=== PATIENT | female | born 1970 | race Caucasian/White ===

== ENCOUNTER 2023-11-26 22:53 | Emergency (ER) | payer OTHER, SELFPAY ==
[2023-11-26 22:55] VITALS: BP 125/72
--- NOTE | 2023-11-26 23:53 | ED.GENMED ---
Addendum entered and electronically signed by Brandon Hahn DO 12/06/23 15:39:
Final Diagnosis: Lumbar radiculopathy
Original Note:
History of Present Illness
General
Chief Complaint: Extremity Pain (non-traumatic)
Source: patient and spouse
Time Seen by Provider: 11/26/23 23:15
Travel History
Have you had any contact with someone who has COVID-19?: No
Do you have any symptoms of coronavirus? Fever > 100 degrees, chills, cough, shortness of breath, sore throat, loss of taste or smell, muscle aches, or headache?: No
History of Present Illness
History of Present Illness:
53-year-old female presents with pain in the right lateral leg that radiates down her toes posteriorly. Pain has been going on for 3 to 4 weeks. The pain hurts somewhat const does feel worse. There is not really any position that seems to make it
worse. She has not wanted to walk due to the pain. She denies numbness or tingling. She does have a history of lumbar microdiscectomy and it does feel somewhat similar. Her symptoms in the past were also on her right. No fevers. No injury
Past History
Past History
ED Past Medical History: Hypothyroidism and Other (Endometriosis)
ED Past Surgical History: and Orthopedic (Low back surgery)
Social History
Personal:
Phy Exam
Physical Exam
Physical Exam:
CONSTITUTIONAL Vital signs reviewed, Patient alert and oriented to person, place and time. Well-appearing
HEAD atraumatic, normocephalic.
EYES eyelids normal to inspection, Extraocular muscles intact, Conjunctiva normal, Sclera normal.
NECK normal range of motion, Trachea midline, no jugular venous distention.
RESP no respiratory distress
BACK No obvious deformities
UPPER EXTREMITY Gross Range of motion normal, gross motor strength normal
LOWER EXTREMITY Gross range of motion normal, Gross motor strength normal. No palpable cords. No edema. Normal dorsalis pedis and posterior tibia pulses
NEURO Speech normal, No focal motor deficits include, [place] coma scale 15, Memory normal, Cranial Nerves intact to screening exam. positive straight leg raise
SKIN Skin warm, dry, and normal in color.
PSYCHIATRIC Patient oriented to person place and time, Normal affect.
Course
Orders/Labs/Results
Orders:
Orders
11/26/23 23:51
Ketorolac [Toradol] 60 mg IM NOW STA
Prednisone [Deltasone] 50 mg PO NOW STA
Vital Signs
Initial and Last Documented VS:
Initial Vital Signs
Temp Pulse Resp BP Pulse Ox
97.6 F 92 14 125/72 97
11/26/23 22:55 11/26/23 22:55 11/26/23 22:55 11/26/23 22:55 11/26/23 22:55
Last Documented Vital Signs
Temp Pulse Resp BP Pulse Ox
97.6 F 92 14 125/72 97
11/26/23 22:55 11/26/23 22:55 11/26/23 22:55 11/26/23 22:55 11/26/23 22:55
MDM/Problems Addressed
MDM/Problems Addressed:
Lumbar radiculopathy
*Pulse Oximetry
Patient hypoxic: no
*Critical Care Note
Total Time (30-74mins, 75-104mins- exclusive of procedures): Not Applicable
Data Reviewed
Further Testing Considered But Not Given:
Consider imaging but no trauma
Patient Management
Escalation/DeEscalation of care consider admission/obs:
No evidence of DVT. No evidence of arterial compromise. Suspect lumbar radiculopathy. Patient's PCP appointment on Tuesday and will follow-up with her back surgeon. Trial steroids. Recommended PT, outpatient MRI and possible pain management for
injection
ED Attending Note
-
Portions of this chart may have been created with voice recognition software.� Occasional wrong word or��sound alike� substitutions may have occurred due to the inherent limitations of voice recognition software.
Discharge Plan
Departure
Date of Disposition: 11/26/23
Time of Disposition: 23:58
Patient with high blood pressure during this ER visit?: No
Instructions: Radiculopathy
Prescriptions:
New
prednisone 10 mg Tablet
See Rx Instructions .ROUTE .COMPLEX Qty: 45 0RF
Rx Instructions:
Take By Mouth:
50 mg daily x3 days, 40 mg daily x3 days,
30 mg daily x3 days, 20 mg daily x3 days,
10 mg daily x3 days
No Action
levothyroxine 50 MCG tablet
50 mcg PO DAILY AT 0700
duloxetine 30 MG capsule,delayed release(DR/EC)
30 mg PO DAILY
Bupropion Hcl [Bupropion Xl] 150 MG Tab.Er.24h
150 mg PO DAILY
methvaibhav-mRufinablue-s.fwvi-urjlh-dto [Uribel] 1 EACH capsule
1 cap PO QIDPRN PRN (Reason: urinary tract irritation) Qty: 40 1RF
Activity Restrictions/Additional Instructions:
Please see your doctor on Tuesday as planned. Other considerations for further management may include PT, MRI and pain management evaluation as discussed. Return today for motor weakness, worsening symptoms, fever, discoloration of the foot,
swelling of the leg or any other concerns.
Interventions
Interventions:
*Risk Screen - Suicide Last Done: 11/26/23 22:55
*General Assessment Last Done: 11/26/23 22:55
*Neglect/Abuse Screening Last Done: 11/26/23 22:55
Discharge Date and Time
Print Language: BURKINAN
[2023-11-27] MEDS: DELTASONE 50 MG PO (00:03)
[2023-11-27] MEDS: TORADOL 60 MG IM (00:03)
== END 2023-11-27 00:44 | disposition home or self-care (01) ==
LOC: EMR 22:53
PROVIDERS: EMERGENCY PHYSICIAN Emergency Medicine; FAMILY PHYSICIAN Internal Medicine
DX: M54.16 Radiculopathy, lumbar region (principal)
CPT/HCPCS: 99284; 96372

== ENCOUNTER 2024-02-19 23:08 | Emergency (ER) | payer OTHER, SELFPAY ==
[2024-02-19 23:09] VITALS: BP 132/85
--- NOTE | 2024-02-19 23:43 | ED.GENMED ---
History of Present Illness
General
Chief Complaint: Flank Pain
Source: patient
Exam Limitations: none
Time Seen by Provider: 02/19/24 23:31
History of Present Illness
History of Present Illness:
This is a 53 year old female that comes in with c/o right back/flank pain. States that she has severe right lower back pain. State that this has been constant since yesterday. States that she has been taking Ibuprofen with no relief. Denies any
nausea, vomiting, diarrhea. Denies any fever, chills, chest pain, SOB, headache, dizziness, urinary burning or frequency.
Past History
Past History
ED Past Medical History: Hypothyroidism, Psychiatric (Anxiety, ) and Other (Endometriosis, Back pain, Renal calculus, )
ED Past Surgical History: and Orthopedic (Low back surgery, Right rotator cuff)
Social History
Tobacco: Non-smoker
Alcohol: None
Personal: Single
Living: with family
Review of Systems
Review of Systems
All Other Systems: ROS reviewed and negative except as documented in HPI and ROS
Constitutional: Reports no symptoms; Denies fever or chills
EENT: Reports no symptoms
Respiratory: Reports no symptoms; Denies cough or trouble breathing
Cardiac: Reports no symptoms; Denies chest pain
ABD/GI: Denies nausea, vomiting or diarrhea
: Reports flank pain (Right sided); Denies dysuria, frequency or urgency
Musculoskeletal: Reports back pain (Right sided)
Skin: Reports no symptoms
Neurological: Reports no symptoms; Denies dizzy or headache
Psychiatric: Reports no symptoms
Phy Exam
General Physical Exam
General Presentation: mild distress
General age: appears stated age
General Skin: warm and dry
General Habitus: normal
General Mental: alert
General Hydration: dry mucous membranes
ENT Exam
ENT Exam: TM's normal, pharynx normal and neck supple
Eye Exam
Eye Exam: EOMI
Cardiovascular Exam
Cardiovascular Exam: regular rate/rhythm, no edema, no murmur and normal peripheral pulses
Pulmonary Exam
Pulmonary Exam: lungs clear, no respiratory distress, no rales, chest non tender, no crackles, no rhonchi, no wheezing and no cough
Gastrointestinal Exam
Gastrointestinal Exam: normal bowel sounds, soft, no organomegaly, no pulsatile mass, non distended, cva tenderness (Slight right sided) and tender (Right sided abd tenderness with palpation)
Musculoskeletal Exam
Musculoskeletal Exam: full ROM and no edema
Skin Exam
Skin Exam: normal color, warm/dry, no rash and no petechia
Psychiatric Exam
Psychiatric Exam: normal mood/affect
Course
Orders/Labs/Results
Orders:
Orders
02/19/24 23:12
Urinalysis Reflex To Culture Urgent
Date Specimen was Collected: 02/19/24
Time Specimen was Collected: 23:12
02/19/24 23:32
Complete Blood Count/With Diff Urgent
02/19/24 23:33
Comprehensive Metabolic Panel Urgent
02/19/24 23:41
0.9% Sodium Chloride 1000 ml [Nss] 1,000 ml IV BOLUS
Ketorolac [Toradol] 30 mg IV NOW STA
02/19/24 23:43
HYDROmorphone [Dilaudid] 0.5 mg IV NOW STA
02/20/24 00:01
CT Abd/pel Without Iv Or Oral Urgent
Reason For Exam: Right flank pain
02/20/24 00:02
Urine Microscopic Reflex Cult Urgent
Urine Culture Urgent
MANOJ Source: U
Specimen Description:
Date Specimen was Collected: 02/19/24
Time Specimen was Collected: 23:12
02/20/24 01:23
CefTRIAXone [Rocephin] 1,000 mg IV NOW STA
HYDROmorphone [Dilaudid] 1 mg IV NOW STA
Abnormal Lab Results
02/20/24
00:02
RBC 4.02 L 10^6/uL
(4.20-5.40)
Hct 36.3 L %
(37.0-47.0)
Abs Immat Gran (auto) 0.1 H 10^3/uL
(0-0.05)
Absolute Monos (auto) 1.1 H 10^3/uL
(0.1-0.6)
Immature Gran % 1.3 H %
(0-0.5)
Monocytes % 12.5 H %
(1.7-9.3)
Glucose 113 H mg/dl
(70-99)
Urine Nitrite (Reflex) Positive A
(Negative)
Leukocyte Esterase Rfl 1+ A
(Negative)
Urine WBC (Reflex) >100 A /HPF
(0-5)
Urine Bacteria (Reflex) Many A
(Negative)
02/20/24 00:02
02/20/24 00:02
Vital Signs
Initial and Last Documented VS:
Initial Vital Signs
Temp Pulse Resp BP Pulse Ox
99.1 F 106 20 132/85 98
02/19/24 23:09 02/19/24 23:09 02/19/24 23:09 02/19/24 23:09 02/19/24 23:09
Last Documented Vital Signs
Temp Pulse Resp BP Pulse Ox
97.9 F 96 16 111/67 97
02/20/24 00:00 02/20/24 00:00 02/20/24 00:00 02/20/24 00:00 02/20/24 00:00
MDM/Problems Addressed
Differential Diagnosis Includes:
Renal calculus, Back pain
MDM/Problems Addressed:
This is a 53 year old female that comes in with c/o right low back pain. Patient has a history of back pain and renal calculus. States that the pain started yesterday and has been constant.
Will get labs and CT scan. IV fluids and pain medication.
Back into see patient. Explained that her CT shows that she has a stone in the kidney on the left but no renal calculus on the right. Patient does have a UTI and since she is c/o back pain this is most likely a Pyelonephritis. Will give patient IV
antibiotic and discharge patient home on Oral medication. Patient to increase her water intake to 8-8oz glasses daily. Follow up with the family doctor. Return with any concerns
Chronic conditions affecting care:
Back pain
Acute Exacerbation and/or Progression of Chronic Illness:
renal calculus, Back pain
*Radiology
Radiology exam reviewed: radiology read reviewed (CT- No acute intra-abdominal pathology. NO hydronephrosis. Approximately 4mm calculus in the posterior upper pole calyx on the left. No bowel obstruction or inflammation. Appendix is normal. No frree
air or free fluid. )
*Pulse Oximetry
Patient hypoxic: no
*EKG
Interpreted by ED Provider?: NA
Rate: EKG- N/A
*Cosmetic Surgeon Interpretation
Rate: Cosmetic Surgeon- N/A
*Critical Care Note
Total Time (30-74mins, 75-104mins- exclusive of procedures): Not Applicable
ED Attending Note
-
Portions of this chart may have been created with voice recognition software.� Occasional wrong word or��sound alike� substitutions may have occurred due to the inherent limitations of voice recognition software.
Discharge Plan
Departure
Patient Disposition: Home (Routine Discharge)
Date of Disposition: 02/20/24
Time of Disposition: 01:26
Patient with high blood pressure during this ER visit?: No
Condition: Good
Covid-19: Not Applicable
Discharge Problem:
Pyelonephritis of right kidney
Instructions: Urinary Tract Infection, Adult ED
Prescriptions:
New
cefdinir 300 mg capsule
300 mg PO BID Qty: 14 0RF
No Action
levothyroxine 50 MCG tablet
50 mcg PO DAILY AT 0700
duloxetine 30 MG capsule,delayed release(DR/EC)
30 mg PO DAILY
Bupropion Hcl [Bupropion Xl] 150 MG Tab.Er.24h
150 mg PO DAILY
hetal-s.wsbb-zcgxk-tna [Uribel] 1 EACH capsule
1 cap PO QIDPRN PRN (Reason: urinary tract irritation) Qty: 40 1RF
prednisone 10 mg Tablet
See Rx Instructions .ROUTE .COMPLEX Qty: 45 0RF
Rx Instructions:
Take By Mouth:
50 mg daily x3 days, 40 mg daily x3 days,
30 mg daily x3 days, 20 mg daily x3 days,
10 mg daily x3 days
Referrals:
Bonnie Esteban MD [Family Provider] - Call in 1-3 days for appt
Activity Restrictions/Additional Instructions:
As discussed, your blood work is normal. However you have a urinary tract infection. This is most likely a kidney infection due to the fact that you have right sided back pain. Your CT shows that you have a stone in the left kidney but this normally
dose not cause pain unless it moves. Please increase your water intake to 8-8oz glasses daily. Follow up with the family doctor after you are off the antibiotic for a repeat urine test. IF YOU HAVE INCREASED FEVER, VOMITING, PAIN OR YOU HAVE ANY
OTHER CONCERNS PLEASE RETURN TO THE EMERGENCY ROOM.
Interventions
Interventions:
*Risk Screen - Suicide Last Done: 02/19/24 23:09
*Neglect/Abuse Screening Last Done: 02/19/24 23:09
Discharge Date and Time
Print Language: PERSIAN
[2024-02-20] VITALS: BP 111/67
[2024-02-20] MEDS: NSS 1000 IV (00:03)
[2024-02-20] MEDS: TORADOL 30 MG IV (00:03)
[2024-02-20] MEDS: DILAUDID 0.5 MG IV (00:04)
[2024-02-20 00:29] LABS: % Basophils 0.4 % (0-2); % Eosinophils 1.8 % (0-6); % Immature Granulocytes 1.3 % (0-0.5); % Lymphocytes 28.5 % (20.5-51.1); % Monocytes 12.5 % (1.7-9.3); % Neutrophils 55.5 % (42.2-75.2); Absolute Eosinophils 0.2 10^3/uL (0-0.7); Absolute Immature Granulocytes 0.1 10^3/uL (0-0.05); Absolute Lymphocytes 2.4 10^3/uL (1.2-3.4); Absolute Monocytes 1.1 10^3/uL (0.1-0.6); Absolute Neutrophils 4.7 10^3/uL (1.4-6.5); Hematocrit 36.3 % (37.0-47.0); Hemoglobin 12.4 g/dL (12.0-16.0); Mean Corp Hgb Conc. 34.2 g/dL (33.0-37.0); Mean Corpuscular Hgb 30.8 pg (27.0-31.0); Mean Corpuscular Volume 90.3 fL (81.0-99.0); Mean Platelet Volume 9.4 fL (7.4-10.4); Nucleated Red Blood Cells % 0 %; Platelet Count 291 10^3/uL (130-400); Red Blood Cell Count 4.02 10^6/uL (4.20-5.40); Red Cell Dist. Width 12.5 % (11.5-14.5); White Blood Cell Count 8.5 10^3/uL (4.8-10.8)
[2024-02-20 00:39] LABS: ALT (SGPT) 18 U/L (0-35); AST (SGOT) 22 U/L (14-36); Alkaline Phosphatase 117 U/L (38-126); Blood Urea Nitrogen 12 mg/dl (7-17); Calcium 9.8 mg/dl (8.4-10.2); Carbon Dioxide 28 mmol/L (22-30); Chloride 103 mmol/L (98-107); Glucose 113 mg/dl (70-99); Potassium 3.9 mmol/L (3.5-5.1); Sodium 137 mmol/L (135-145); Total Bilirubin 0.5 mg/dl (0.2-1.3); Total Protein 6.3 g/dl (6.3-8.2); eGFR > 60.00
[2024-02-20 00:40] LABS: Urine Albumin Negative (Neg - Trace); Urine Bilirubin Negative (Negative); Urine Character Slightly Cloudy (Clear); Urine Color Yellow; Urine Glucose Negative (Negative); Urine Ketone Negative (Negative); Urine Leukocyte 1+ (Negative); Urine Nitrite Positive (Negative); Urine Occult Blood Negative (Negative); Urine Urobilinogen Negative (Neg - 1+)
[2024-02-20 01:07] LABS: Urine Squamous Cell >30 /LPF (Few)
[2024-02-20 01:08] LABS: Urine Bacteria Many (Negative); Urine Mucus Many; Urine White Cell >100 /HPF (0-5)
[2024-02-20 01:13] LABS: Urine Red Blood Cell 0-2 /HPF (0-2)
[2024-02-20] MEDS: DILAUDID 1 MG IV (01:39)
[2024-02-20] MEDS: ROCEPHIN 1000 MG IV (01:39)
[2024-02-20 01:45] VITALS: BP 119/66
== END 2024-02-20 02:10 | disposition home or self-care (01) ==
LOC: EMR 23:08
PROVIDERS: Clinical Nurse Specialist Family Health; Emergency Medicine; EMERGENCY PHYSICIAN Emergency Medicine; FAMILY PHYSICIAN Internal Medicine
DX: N12 Tubulo-interstitial nephritis, not specified as acute or chronic (principal)
CPT/HCPCS: 99284; 96374; 96375 ×2; 96361; 96376; 74176; 80053; 81003; 81015; 85025; 87077; 87086; 87186

== ENCOUNTER 2024-03-31 16:57 | Emergency (ER) | payer OTHER, SELFPAY ==
[2024-03-31 17:03] VITALS: BP 177/107
[2024-03-31 17:08] VITALS: BMI 28.3
[2024-03-31] MEDS: NSS 1000 IV (17:23)
[2024-03-31] MEDS: ZOFRAN 4 MG IV (17:24)
[2024-03-31] MEDS: TORADOL 15 MG IV (17:24)
[2024-03-31 17:25] LABS: % Basophils 0.4 % (0-2); % Eosinophils 2.1 % (0-6); % Immature Granulocytes 0.2 % (0-0.5); % Lymphocytes 38.5 % (20.5-51.1); % Monocytes 11.2 % (1.7-9.3); % Neutrophils 47.6 % (42.2-75.2); Absolute Eosinophils 0.2 10^3/uL (0-0.7); Absolute Lymphocytes 3.7 10^3/uL (1.2-3.4); Absolute Monocytes 1.1 10^3/uL (0.1-0.6); Absolute Neutrophils 4.6 10^3/uL (1.4-6.5); Hematocrit 39.5 % (37.0-47.0); Hemoglobin 13.8 g/dL (12.0-16.0); Mean Corp Hgb Conc. 34.9 g/dL (33.0-37.0); Mean Corpuscular Hgb 30.1 pg (27.0-31.0); Mean Corpuscular Volume 86.2 fL (81.0-99.0); Mean Platelet Volume 9.1 fL (7.4-10.4); Nucleated Red Blood Cells % 0 %; Platelet Count 359 10^3/uL (130-400); Red Blood Cell Count 4.58 10^6/uL (4.20-5.40); Red Cell Dist. Width 12.9 % (11.5-14.5); White Blood Cell Count 9.6 10^3/uL (4.8-10.8)
[2024-03-31 17:51] LABS: ALT (SGPT) 26 U/L (0-35); AST (SGOT) 33 U/L (14-36); Albumin 4.7 g/dl (3.5-5.0); Alkaline Phosphatase 131 U/L (38-126); Blood Urea Nitrogen 20 mg/dl (7-17); Calcium 10.8 mg/dl (8.4-10.2); Carbon Dioxide 23 mmol/L (22-30); Chloride 104 mmol/L (98-107); Estimated Creatinine Clearance 73 ml/min; Glucose 103 mg/dl (70-99); Lipase 190 U/L (23-300); Potassium 3.7 mmol/L (3.5-5.1); Sodium 141 mmol/L (135-145); Total Bilirubin 0.5 mg/dl (0.2-1.3); Total Protein 7.1 g/dl (6.3-8.2); eGFR > 60.00
--- NOTE | 2024-03-31 17:51 | ED.GENMED ---
Addendum entered and electronically signed by Ivanna Cottrell NP 04/01/24 14:08:
[facility] out [facility] Vicodin rx sent for Percocet
Original Note:
History of Present Illness
General
Chief Complaint: Abdominal Pain
Source: patient
Exam Limitations: none
Time Seen by Provider: 03/31/24 17:10
Nursing documentation reviewed up to this point in time: agreed with
History of Present Illness
History of Present Illness:
53-year-old female with history of kidney stones, hypothyroid presents stating sudden onset of left lower back pain and left lower quadrant pain 1 hour ago. She has been nauseous and vomiting, states pain is 10/10.
Past History
Past History
ED Past Medical History: Hypothyroidism, Psychiatric (Anxiety, ) and Other (Endometriosis, Back pain, Renal calculus, )
ED Past Surgical History: , Orthopedic (Low back surgery, Right rotator cuff) and Urological (R ureteral stone removed and stented)
Social History
Tobacco: Non-smoker
Alcohol: None
Personal: Single
Living: with family
Review of Systems
Review of Systems
Allergies reviewed?: Yes
All Other Systems: ROS reviewed and negative except as documented in HPI and ROS
Constitutional: Denies fever
ABD/GI: Reports abdominal pain, nausea and vomiting; Denies diarrhea
: Reports flank pain (left)
Skin: Reports no symptoms
Neurological: Reports no symptoms
Phy Exam
Physical Exam
Physical Exam:
GENERAL: Mild distress with pain. A&Ox3.
CONSTITUTIONAL: Afebrile.
RESPIRATORY: Regular respirations, nonlabored, lungs clear.
CARDIOVASCULAR: Regular rate and rhythm, no murmurs, no rubs.
GI: Soft, nontender, normal BS. Left flank tenderness
MUSCULOSKELETAL: Moves with ease. Well perfused.
SKIN: Warm, dry, pink
PSYCH: Anxiousl mood and affect. Well kept, interactive and appropriate
NEUROLOGIC: Awake, alert and oriented. No focal neurological deficits
Course
Orders/Labs/Results
Orders:
Orders
03/31/24 17:17
Complete Blood Count/With Diff Urgent
Comprehensive Metabolic Panel Urgent
Lipase Urgent
0.9% Sodium Chloride 1000 ml [Nss] 1,000 ml IV BOLUS
Ketorolac [Toradol] 15 mg IV NOW STA
03/31/24 17:19
CT Abd/pel Without Iv Or Oral Urgent
Comment:
Reason For Exam: LLQ, back pain, hx kidney stones
Ondansetron Injectable [Zofran] 4 mg .ROUTE .ST-MED ONE
Ondansetron Injectable [Zofran] 4 mg IV NOW STA
03/31/24 18:23
HYDROmorphone [Dilaudid] 1 mg IV NOW STA
03/31/24 18:49
Tamsulosin [Flomax] 0.4 mg PO NOW STA
03/31/24 19:07
Urinalysis Reflex To Culture Urgent
Date Specimen was Collected: 03/31/24
Time Specimen was Collected: 19:05
Urine Microscopic Reflex Cult Urgent
03/31/24 20:01
Hydrocodone 5/APAP 325 [[place] 5/325] 1 tablet PO NOW STA
Abnormal Lab Results
03/31/24 03/31/24
17:17 19:07
Absolute Lymphs (auto) 3.7 H 10^3/uL
(1.2-3.4)
Absolute Monos (auto) 1.1 H 10^3/uL
(0.1-0.6)
Monocytes % 11.2 H %
(1.7-9.3)
BUN 20 H mg/dl
(7-17)
Glucose 103 H mg/dl
(70-99)
Calcium 10.8 H mg/dl
(8.4-10.2)
Alkaline Phosphatase 131 H U/L
(38-126)
Urine Ketones Trace A
(Negative)
Ur Occult Blood Reflex 4+ A
(Negative)
Urine Bacteria (Reflex) Few A
(Negative)
03/31/24 17:17
03/31/24 17:17
Vital Signs
Initial and Last Documented VS:
Initial Vital Signs
Temp Pulse Resp BP Pulse Ox
98.1 F 80 20 177/107 99
03/31/24 17:03 03/31/24 17:03 03/31/24 17:03 03/31/24 17:03 03/31/24 17:03
Last Documented Vital Signs
Temp Pulse Resp BP Pulse Ox
98.2 F 99 18 132/72 97
03/31/24 20:09 03/31/24 20:09 03/31/24 20:09 03/31/24 20:09 03/31/24 20:09
MDM/Problems Addressed
Differential Diagnosis Includes:
kidney stone, UTI, pyelonephritis
MDM/Problems Addressed:
53-year-old female with history of kidney stones, hypothyroid presents stating sudden onset of left lower back pain and left lower quadrant pain 1 hour ago. She has been nauseous and vomiting, states pain is 10/10.
5:55 p.m.
After IV Toradol and Zofran patient is feeling better, pain is down to 7/10 and she appears much better
She is going to CAT scan at this time
6:[address] radiology report read: IMPRESSION:
There is 5 x 2.5 mm obstructing calculus in the distal left ureter approximately 1 cm above the ureterovesical junction associated with moderate left hydronephrosis and moderate left hydroureter
CBC: normal
CMP: No clinically significant abnormality
Lipase: WNL
Pt requesting more pain medication; ordered
8:00 PM:
Patient feeling much better, requesting to go home
Prescription for Imperial and Flomax sent to her pharmacy
Pt PCP got her a Urology appointment for 04/10 with a group outside of . She requested Urologist also.
Referred to Urology
*Critical Care Note
Total Time (30-74mins, 75-104mins- exclusive of procedures): Not Applicable
ED Attending Note
-
Portions of this chart may have been created with voice recognition software.� Occasional wrong word or��sound alike� substitutions may have occurred due to the inherent limitations of voice recognition software.
Discharge Plan
Departure
Patient Disposition: Home (Routine Discharge)
Date of Disposition: 03/31/24
Time of Disposition: 20:02
Patient with high blood pressure during this ER visit?: No
Condition: Good
Discharge Problem:
Calculus of distal left ureter
Instructions: Kidney Stones (DC)
Prescriptions:
New
hydrocodone-acetaminophen 5-325 mg tablet
1 tab PO Q6H PRN (Reason: pain) Qty: 10 0RF
tamsulosin [Flomax] 0.4 mg capsule
0.4 mg PO DAILY Qty: 4 0RF
No Action
levothyroxine 50 MCG tablet
88 mcg PO DAILY AT 0700
duloxetine [Cymbalta] 60 mg Capsule,Delayed Release(Dr/Ec)
60 mg PO DAILY
Referrals:
Lasha Mejia MD [Active] - Next open appointment
Effie Delgadillo MD [Family Provider] -
Activity Restrictions/Additional Instructions:
As we discussed, I sent a prescription to your pharmacy for the Flomax and Vicodin
Ibuprofen 600 mg every 6 hours for mild to moderate pain and use the Vicodin if needed for worse pain
Call and make appointment with the [facility] Urologist or keep your appointment with the Urologist your doctor recommended on Apr 10
Return here immediately for fever, chills, worsening pain/vomiting or feeling sicker in any way.
Interventions
Interventions:
*Risk Screen - Suicide Last Done: 03/31/24 17:11
*General Assessment Last Done: 03/31/24 17:01
*Neglect/Abuse Screening Last Done: 03/31/24 17:11
ED- Fall Risk Assessment Last Done: 03/31/24 17:11
*ED COVID-19 Vaccine History Last Done: 03/31/24 17:01
*Nursing Disposition Last Done: 03/31/24 20:21
EN-Cgrpvj-Oqnckbqxwf Assessment Last Done: 03/31/24 19:15
Discharge Date and Time
Discharge Date/Time: 03/31/24 20:22
Print Language: ARABIC
[2024-03-31 18:12] VITALS: BP 154/83
[2024-03-31] MEDS: DILAUDID 1 MG IV (18:29)
[2024-03-31] MEDS: FLOMAX 0.4 MG PO (19:03)
[2024-03-31 19:04] VITALS: BP 131/63
[2024-03-31 19:19] LABS: Urine Albumin Negative (Neg - Trace); Urine Bilirubin Negative (Negative); Urine Character Slightly Cloudy (Clear); Urine Color Straw; Urine Glucose Negative (Negative); Urine Ketone Trace (Negative); Urine Leukocyte Negative (Negative); Urine Nitrite Negative (Negative); Urine Occult Blood 4+ (Negative); Urine Urobilinogen Negative (Neg - 1+)
[2024-03-31 19:27] LABS: Urine Bacteria Few (Negative); Urine Squamous Cell 21-25 /LPF (Few)
[2024-03-31 19:28] LABS: Urine Red Blood Cell 0-2 /HPF (0-2)
[2024-03-31 20:09] VITALS: BP 132/72
[2024-03-31] MEDS: NORCO 5/325 1 TABLET PO (20:16)
--- NOTE | 2024-04-01 14:07 | ED.GENMED ---
History of Present Illness
General
Chief Complaint: Abdominal Pain
Time Seen by Provider: 03/31/24 17:10
Past History
Past History
ED Past Medical History: Hypothyroidism, Psychiatric (Anxiety, ) and Other (Endometriosis, Back pain, Renal calculus, )
ED Past Surgical History: , Orthopedic (Low back surgery, Right rotator cuff) and Urological (R ureteral stone removed and stented)
Social History
Tobacco: Non-smoker
Alcohol: None
Personal: Single
Living: with family
Course
Orders/Labs/Results
Orders:
Orders
03/31/24 17:17
Complete Blood Count/With Diff Urgent
Comprehensive Metabolic Panel Urgent
Lipase Urgent
0.9% Sodium Chloride 1000 ml [Nss] 1,000 ml IV BOLUS
Ketorolac [Toradol] 15 mg IV NOW STA
03/31/24 17:19
CT Abd/pel Without Iv Or Oral Urgent
Comment:
Reason For Exam: LLQ, back pain, hx kidney stones
Ondansetron Injectable [Zofran] 4 mg .ROUTE .STK-MED ONE
Ondansetron Injectable [Zofran] 4 mg IV NOW STA
03/31/24 18:23
HYDROmorphone [Dilaudid] 1 mg IV NOW STA
03/31/24 18:49
Tamsulosin [Flomax] 0.4 mg PO NOW STA
03/31/24 19:07
Urinalysis Reflex To Culture Urgent
Date Specimen was Collected: 03/31/24
Time Specimen was Collected: 19:05
Urine Microscopic Reflex Cult Urgent
03/31/24 20:01
Hydrocodone 5/APAP 325 [[place] 5/325] 1 tablet PO NOW STA
Abnormal Lab Results
03/31/24 03/31/24
17:17 19:07
Absolute Lymphs (auto) 3.7 H 10^3/uL
(1.2-3.4)
Absolute Monos (auto) 1.1 H 10^3/uL
(0.1-0.6)
Monocytes % 11.2 H %
(1.7-9.3)
BUN 20 H mg/dl
(7-17)
Glucose 103 H mg/dl
(70-99)
Calcium 10.8 H mg/dl
(8.4-10.2)
Alkaline Phosphatase 131 H U/L
(38-126)
Urine Ketones Trace A
(Negative)
Ur Occult Blood Reflex 4+ A
(Negative)
Urine Bacteria (Reflex) Few A
(Negative)
03/31/24 17:17
03/31/24 17:17
Vital Signs
Initial and Last Documented VS:
Initial Vital Signs
Temp Pulse Resp BP Pulse Ox
98.1 F 80 20 177/107 99
03/31/24 17:03 03/31/24 17:03 03/31/24 17:03 03/31/24 17:03 03/31/24 17:03
Last Documented Vital Signs
Temp Pulse Resp BP Pulse Ox
98.2 F 99 18 132/72 97
03/31/24 20:09 03/31/24 20:09 03/31/24 20:09 03/31/24 20:09 03/31/24 20:09
ED Attending Note
-
Portions of this chart may have been created with voice recognition software.� Occasional wrong word or��sound alike� substitutions may have occurred due to the inherent limitations of voice recognition software.
Discharge Plan
Departure
Patient Disposition: Home (Routine Discharge)
Date of Disposition: 03/31/24
Time of Disposition: 20:02
Patient with high blood pressure during this ER visit?: No
Condition: Good
Discharge Problem:
Calculus of distal left ureter
Instructions: Kidney Stones (DC)
Prescriptions:
New
tamsulosin [Flomax] 0.4 mg capsule
0.4 mg PO DAILY Qty: 4 0RF
oxycodone-acetaminophen [Percocet] 5-325 mg tablet
1 tab PO Q6HPRN PRN (Reason: pain) Qty: 10 0RF
No Action
levothyroxine 50 MCG tablet
88 mcg PO DAILY AT 0700
duloxetine [Cymbalta] 60 mg Capsule,Delayed Release(Dr/Ec)
60 mg PO DAILY
Referrals:
Lasha Mejia MD [Active] - Next open appointment
Effie Delgadillo MD [Family Provider] -
Activity Restrictions/Additional Instructions:
As we discussed, I sent a prescription to your pharmacy for the Flomax and Vicodin
Ibuprofen 600 mg every 6 hours for mild to moderate pain and use the Vicodin if needed for worse pain
Call and make appointment with the [facility] Urologist or keep your appointment with the Urologist your doctor recommended on Apr 10
Return here immediately for fever, chills, worsening pain/vomiting or feeling sicker in any way.
Interventions
Interventions:
*Risk Screen - Suicide Last Done: 03/31/24 17:11
*General Assessment Last Done: 03/31/24 17:01
*Neglect/Abuse Screening Last Done: 03/31/24 17:11
ED- Fall Risk Assessment Last Done: 03/31/24 17:11
*ED COVID-19 Vaccine History Last Done: 03/31/24 17:01
*Nursing Disposition Last Done: 03/31/24 20:21
KR-Wpwnno-Qevmmzktrq Assessment Last Done: 03/31/24 19:15
Discharge Date and Time
Discharge Date/Time: 03/31/24 20:22
Print Language: LITHUANIAN
== END 2024-03-31 20:22 | disposition home or self-care (01) ==
LOC: EMR 16:57
PROVIDERS: Registered Nurse; EMERGENCY PHYSICIAN Emergency Medicine; FAMILY PHYSICIAN Student in an Organized Health Care Education/Training Program
DX: N13.2 Hydronephrosis with renal and ureteral calculous obstruction (principal); R11.2 Nausea with vomiting, unspecified; F41.9 Anxiety disorder, unspecified; E03.9 Hypothyroidism, unspecified; Z87.442 Personal history of urinary calculi; Z88.0 Allergy status to penicillin; Z88.2 Allergy status to sulfonamides; Z87.891 Personal history of nicotine dependence
CPT/HCPCS: 99284; 96374; 96375 ×2; 96361; 74176; 80053; 81003; 81015; 83690; 85025